=== PATIENT | female | born 1970 | race Caucasian/White ===

== ENCOUNTER 2021-04-16 21:21 | Inpatient (IN) | payer OTHER ==
[~2021-04-16] VITALS: Ht 167.6 cm; Wt 73.9 kg
[2021-04-22] MEDS ORDERED: IRON325 MG PO (07:27)
== END 2021-04-22 09:21 | disposition home or self-care (01) | DRG 745 ==
LOC: ER 21:21 → OB/GYN 04-17 15:50
PROVIDERS: ADMIT Obstetrics & Gynecology; ATTEND Obstetrics & Gynecology
PROC: BU4CZZZ Ultrasonography of Uterus and Ovaries (ICD-10-PCS; 2021-04-16)
PROC: 30233N1 Transfusion of Nonautologous Red Blood Cells into Peripheral Vein, Percutaneous Approach (ICD-10-PCS; 2021-04-17)
PROC: BW3GZZZ Magnetic Resonance Imaging (MRI) of Pelvic Region (ICD-10-PCS; 2021-04-20)
PROC: 0UBC7ZX Excision of Cervix, Via Natural or Artificial Opening, Diagnostic (ICD-10-PCS; principal; 2021-04-21 18:30)
DX: C53.0 Malignant neoplasm of endocervix (principal); D64.9 Anemia, unspecified; N92.1 Excessive and frequent menstruation with irregular cycle; N88.8 Other specified noninflammatory disorders of cervix uteri; Z20.822 Contact with and (suspected) exposure to COVID-19
CPT/HCPCS: 72198

== ENCOUNTER 2021-05-24 08:20 | Outpatient (CLI) | payer OTHER ==
[~2021-05-24 08:20] MED LIST: IRON325 MG PO
== END 2021-05-24 08:23 | disposition home or self-care (01) ==
LOC: NUCLEAR 08:20
PROVIDERS: ATTEND Obstetrics & Gynecology Gynecologic Oncology
DX: C53.1 Malignant neoplasm of exocervix (principal)
CPT/HCPCS: 78815; A9552

== ENCOUNTER 2021-06-20 11:45 | Inpatient (IN) | payer OTHER ==
[~2021-06-20] VITALS: Ht 167.6 cm; Wt 71.2 kg
== END 2021-06-25 14:08 | disposition home or self-care (01) | DRG 741 ==
LOC: O/R 06-23 08:17 → OB/GYN 06-23 11:45 → SURG 06-23 20:54
PROVIDERS: ADMIT Obstetrics & Gynecology Gynecologic Oncology; ATTEND Obstetrics & Gynecology Gynecologic Oncology
PROC: 0UT70ZZ Resection of Bilateral Fallopian Tubes, Open Approach (ICD-10-PCS; 2021-06-23)
PROC: 07BC0ZZ Excision of Pelvis Lymphatic, Open Approach (ICD-10-PCS; 2021-06-23)
PROC: 0UT90ZZ Resection of Uterus, Open Approach (ICD-10-PCS; principal; 2021-06-23 20:00)
DX: C53.0 Malignant neoplasm of endocervix (principal); D36.0 Benign neoplasm of lymph nodes; D64.9 Anemia, unspecified; N92.1 Excessive and frequent menstruation with irregular cycle

== ENCOUNTER → 2022-04-15 | Emergency (ER) | payer OTHER ==
[~2022-04-15] VITALS: Ht 167.6 cm; Wt 55.3 kg
[~2022-04-15] MED LIST changes: +FOLIVANE-PLUS1 EACH; +PEPCID AC20 MG; +PRILOSEC OTC20 MG; +STOOL SOFTENER50 MG
== END ==
LOC: ER 19:42
DX: K56.609 Unspecified intestinal obstruction, unspecified as to partial versus complete obstruction (principal); Z85.038 Personal history of other malignant neoplasm of large intestine; K55.019 Acute (reversible) ischemia of small intestine, extent unspecified; E86.0 Dehydration; Z20.822 Contact with and (suspected) exposure to COVID-19